=== PATIENT | female | born 1985 | race Caucasian/White ===

== ENCOUNTER 2018-03-09 17:41 | Inpatient (IN) ==
[2018-03-09] MEDS ORDERED: [UNRECOGNIZED DRUG - OTHER] SQ SCH (18:15)
--- NOTE | 2018-03-09 18:20 | P.HPOB ---
History of Present Illness Primary Care Physician: No Primary Care Physician Chief Complaint: hypertension History of Present Illness: 32 yo here with BP of 155/100. she had 12 # weight gain and doesn't feel well. She is insulin dependent diabetic controlled well. Weeks Gestation:: 37 Para: 0 : 1 Review of Systems All other systems reviewed negative except as stated in HPI PMFSH - Medical / Surgical Hx Neg / Unobtainable Surgical History: No Previous Surgery - Medical History Medical History: Medical History (Last Updated 12/27/17 @ 13:13 by Dominic Haley MD) Diabetes mellitus affecting in second trimester - Tobacco History Smoking Status: Never smoker - Alcohol History How Often Do You Have a Drink Containing Alcohol: Never - Substance Use History Substance History: No History of Abuse - Travel History History of Recent Travel: No Medications and Allergies Active Medications: Active Medications Non-Formulary Medication (Insulin Aspart U-100 [Novolog U-100 Insulin Aspart]) 1 sliding scale dose SQ UD SHERI Non-Formulary Medication (Insulin Detemir U-100 [Levemir U-100 Insulin]) 75 unit SQ DAILY SHERI Non-Formulary Medication (Pnv Cmb#95-Ferrous Fumarate-Fa []) 1 tab PO DAILY SHERI Sodium Chloride (Ns Flush) 2 ml IV.FLUSH BID SHERI Sodium Chloride (Ns Flush) 2 ml IV.FLUSH PRN PRN PRN Reason: FLUSH AFTER USING IV ACCESS Allergies Allergy/AdvReac Type Severity Reaction Status Date / Time No Known Allergies Allergy Verified 12/27/17 12:53 Home Medications Medication Instructions Recorded Confirmed Type PNV cmb#95-ferrous fumarate-FA 1 tab PO DAILY 12/27/17 12/27/17 History [] insulin aspart U-100 [Novolog 1 sliding scale dose SUB-Q UD 12/27/17 12/27/17 History U-100 Insulin aspart] insulin detemir U-100 [Levemir 75 - 80 unit SUB-Q DAILY 12/27/17 12/27/17 History U-100 Insulin] Exam Vital signs: Intake & Output 03/08/18 03/09/18 03/09/18 18:59 06:59 18:59 Weight 142.428 kg Other: Weight On Admission 142.428 kg - Constitutional no acute distress - Routine HEENT Exam Head: Present: normocephalic ENT: Present: mucous membranes moist - Routine Respiratory Exam Present: CTA bilaterally - Routine Cardiovascular Exam Present: RRR - Routine Abdominal Exam Present: soft, normoactive bowel sounds - Routine Extremities Exam Present: edema, full ROM - Routine Skin Exam Present: intact - Routine Neurological Exam Present: alert, oriented X3 Caprini VTE Risk Assessment Caprini VTE Risk Assessment: No/Low Risk (score <= 1) Caprini Risk Assessment Model: Point Value = 1 Point Value = 2 Point Value = 3 Point Value = 5 Age 41-60 Minor surgery BMI > 25 kg/m2 Swollen legs Varicose veins or History of unexplained or recurrent spontaneous Oral contraceptives or hormone replacement Sepsis (< 1 month) Serious lung disease, including pneumonia (< 1 month) Abnormal pulmonary function Acute myocardial infarction Congestive heart failure (< 1 month) History of inflammatory bowel disease Medical patient at bed rest Age 61-74 Arthroscopic surgery Major open surgery (> 45 min) Laparoscopic surgery (> 45 min) Malignancy Confined to bed (> 72 hours) Immobilizing plaster cast Central venous access Age >= 75 History of VTE Family history of VTE Factor V Leiden Prothrombin [id number] Lupus anticoagulant Anticardiolipin antibodies Elevated serum homocysteine Heparin-induced thrombocytopenia Other congenital or acquired thrombophilia Stroke (< 1 month) Elective arthroplasty Hip, pelvis, or leg fracture Acute spinal cord injury (< 1 month) Prophylaxis Regimen: Total Risk Factor Score Risk Level Prophylaxis Regimen 0-1 Low Early ambulation 2 Moderate Order ONE of the following: *Sequential Compression Device (SCD) *Heparin 5000 units SQ BID 3-4 Higher Order ONE of the following medications: *Heparin 5000 units SQ TID *Enoxaparin/Lovenox 40 mg SQ daily (WT < 150 kg, CrCl > 30 mL/min) *Enoxaparin/Lovenox 30 mg SQ daily (WT < 150 kg, CrCl > 10-29 mL/min) *Enoxaparin/Lovenox 30 mg SQ BID (WT < 150 kg, CrCl > 30 mL/min) AND/OR *Sequential Compression Device (SCD) 5 or more Highest Order ONE of the following medications: *Heparin 5000 units SQ TID (Preferred with Epidurals) *Enoxaparin/Lovenox 40 mg SQ daily (WT < 150 kg, CrCl > 30 mL/min) *Enoxaparin/Lovenox 30 mg SQ daily (WT < 150 kg, CrCl > 10-29 mL/min) *Enoxaparin/Lovenox 30 mg SQ BID (WT < 150 kg, CrCl > 30 mL/min) AND *Sequential Compression Device (SCD) Assessment and Plan - Diagnosis (1) 37 weeks gestation of Code(s): Z3A.37 - 37 weeks gestation of Status: Acute (2) Gestational hypertension affecting first Code(s): O13.9 - Gestational [-induced] hypertension without significant proteinuria, unspecified trimester Status: Acute (3) Diabetes in Code(s): O24.919 - Unspecified diabetes mellitus in , unspecified trimester Status: Acute - Plan admit for OBS 24 hr urine collect labs and serial BP
[2018-03-09] MEDS ORDERED: Labetalol HCl Inj 100 MG/20 ML Vial IV.PUSH PRN ×3 (18:31→18:52)
[2018-03-09 20:05] LABS: Baso % (Auto) 0.1 % (0.0-2.0); Eos % (Auto) 0.1 % (0.0-4.0); Hematocrit 37.2 % (35.0-46.0); Hemoglobin 11.8 gm/dL (11.6-15.3); Lymph # (Auto) 2.3 th/mm3 (1.0-4.8); Lymph % (Auto) 18.4 % (9.0-44.0); Mean Corpuscular HGB Conc 31.7 % (32.0-36.0); Mean Corpuscular Hemoglobin 25.3 pg (27.0-34.0); Mean Corpuscular Volume 79.8 fL (80.0-100.0); Mean Platelet Volume 10.6 fL (7.0-11.0); Mono # (Auto) 0.6 th/mm3 (0.0-0.9); Mono % (Auto) 4.6 % (0.0-8.0); Neut # (Auto) 9.5 th/mm3 (1.8-7.7); Neut % (Auto) 76.8 % (16.0-70.0); Platelet Count 148 th/mm3 (150-450); Red Blood Count 4.65 mil/mm3 (4.00-5.30); Red Cell Distribution Width 15.6 % (11.6-17.2); White Blood Count 12.4 th/mm3 (4.0-11.0)
[2018-03-09 20:22] LABS: Albumin 2.5 g/dL (3.4-5.0); Anion Gap 7 meq/L (5-15); Aspartate Aminotransferase 23 U/L (15-37); Blood Urea Nitrogen 9 mg/dL (7-18); Calcium 8.9 mg/dL (8.5-10.1); Carbon Dioxide 23.2 meq/L (21.0-32.0); Chloride 108 meq/L (98-107); Glomerular Filtration Rate Greater Than 89 mL/min (>89); Glucose,Random 143 mg/dL (74-106); Sodium 138 meq/L (136-145)
[2018-03-09 20:24] LABS: Alanine Aminotransferase 17 U/L (10-53)
[2018-03-09 20:26] LABS: Alkaline Phosphatase 152 U/L (45-117); Total Protein 6.3 g/dL (6.4-8.2)
[2018-03-09 20:27] LABS: Bilirubin,Urine Negative (Negative); Clarity,Urine Hazy (Clear); Color,Urine Yellow (Yellw/Straw); Glucose,Urine (UA) Negative (Negative); Leukocyte Esterase,Urine Large (Negative); Nitrite,Urine Negative (Negative); Specific Gravity,Urine 1.016 (1.002-1.035)
[2018-03-10] MEDS ORDERED: Non-Formulary Drug (Pnv Cmb#95-Ferrous Fumarate-Fa [Prenatal] 1 TAB) PO SCH (09:00)
[2018-03-10] MEDS ORDERED: [UNRECOGNIZED DRUG - OTHER] PO SCH (09:00)
[2018-03-10] MEDS ORDERED: Insulin Detemir Inj 1,000 UNIT/10 ML Vial SQ SCH (09:00)
[2018-03-10] MEDS ORDERED: fentaNYL Citrate Inj 100 MCG/2 ML Ampul IV.PUSH PRN ×2 (22:42)
[2018-03-10] MEDS ORDERED: Naloxone Inj 0.4 MG/ML Vial IV.PUSH PRN (22:42)
[2018-03-10] MEDS ORDERED: Sodium Chlor 0.9% Inj 500 ML IV.SIG PRN (22:42)
[2018-03-10] MEDS ORDERED: Sod Chloride 0.9% Inj 1,000 ML IV.CONT PRN (22:42)
[2018-03-10] MEDS ORDERED: Oxytocin 30 Units/500ml Premix 30 UNITS/500 ML BAG IV.SIG ONE (22:42)
[2018-03-10] MEDS ORDERED: Citric Acid/Sodium Citrate Liq 30 ML UDC PO SCH (22:45)
--- NOTE | 2018-03-10 22:50 | P.OBANTE ---
Subjective Antepartum ROS: Reports: movement normal Objective Vital Signs and I&O: Vital Signs 03/09/18 23:50 03/09/18 23:53 03/10/18 00:08 Temperature 98.4 F Pulse Rate 91 H 88 Respiratory Rate 18 Blood Pressure 151/92 H 138/87 03/10/18 03:43 03/10/18 03:59 03/10/18 04:02 Temperature 97.7 F Pulse Rate 94 H Respiratory Rate 18 Blood Pressure 135/84 03/10/18 07:58 03/10/18 07:59 03/10/18 08:00 Temperature 97.6 F Pulse Rate 87 Respiratory Rate 18 Blood Pressure 156/100 H 03/10/18 11:20 03/10/18 11:21 03/10/18 15:25 Temperature 98.0 F 98.5 F Pulse Rate 90 Respiratory Rate 18 18 Blood Pressure 153/90 H 03/10/18 15:26 03/10/18 19:32 03/10/18 19:35 Temperature 98.6 F Pulse Rate 95 H 99 H Respiratory Rate 18 Blood Pressure 138/74 155/85 H Intake & Output 03/10/18 03/10/18 03/11/18 06:59 18:59 06:59 Intake Total 1000 / 1000 Balance 1000 / 1000 Intake: IV 1000 / 1000 LR 1000 mL Inj 1,000 ML @ 75 1000 / 1000 mls/hr IV.CONT .[id number] [facility] Rx# :[id number] Lab and Micro Results: Laboratory Results - last 24 hr 03/10/18 18:00 Ur 24 Hour Volume 1800 Ur Total Protein 24 Hr 373 H Physical Exam: GENERAL: Well-nourished, well-developed patient. CARDIOVASCULAR: Regular rate and rhythm without murmurs, gallops, or rubs. RESPIRATORY: Breath sounds equal bilaterally. No accessory muscle use. ABDOMEN/GI: Abdomen soft, non-tender. Fundus: [-] GENITOURINARY: External Genitalia: intact and normal in appearance Cervix: [-] Dilatation: 3 Effacement: [-] Station: [-] Presentation: [-] Membranes: [-] Uterine Contractions: none FHT's: Category:1 Baseline: [-] Reactive: [-] Variability: [-] Decels: [-] EXTREMITIES: No cyanosis or edema, non-tender, without signs of DVT. Assessment and Plan - Diagnosis (1) 37 weeks gestation of Code(s): Z3A.37 - 37 weeks gestation of Status: Acute (2) Gestational hypertension affecting first Code(s): O13.9 - Gestational [-induced] hypertension without significant proteinuria, unspecified trimester Status: Acute (3) Diabetes in Code(s): O24.919 - Unspecified diabetes mellitus in , unspecified trimester Status: Acute (4) Proteinuria affecting in third trimester Code(s): O12.13 - Gestational proteinuria, third trimester Status: Acute - Plan admit for induction. Patient had 24 hour urine greater than 300 at 37 weeks and continued elevation of BP 150/100 range. She has swaeeling and weight gain. I will hold magnesium unless symptoms of preeclamsia worsen. she will have AROM and if no contractions in a few hours pitocin
[2018-03-11 00:52] LABS: Hematocrit 35.3 % (35.0-46.0); Hemoglobin 11.6 gm/dL (11.6-15.3); Mean Corpuscular HGB Conc 32.9 % (32.0-36.0); Mean Corpuscular Volume 78.9 fL (80.0-100.0); Mean Platelet Volume 10.6 fL (7.0-11.0); Platelet Count 144 th/mm3 (150-450); Red Blood Count 4.47 mil/mm3 (4.00-5.30); Red Cell Distribution Width 15.6 % (11.6-17.2); White Blood Count 12.5 th/mm3 (4.0-11.0)
[2018-03-11 01:28] LABS: Alanine Aminotransferase 13 U/L (10-53); Albumin 2.4 g/dL (3.4-5.0); Anion Gap 8 meq/L (5-15); Aspartate Aminotransferase 16 U/L (15-37); Blood Urea Nitrogen 9 mg/dL (7-18); Calcium 8.5 mg/dL (8.5-10.1); Carbon Dioxide 23.1 meq/L (21.0-32.0); Chloride 109 meq/L (98-107); Glomerular Filtration Rate Greater Than 89 mL/min (>89); Glucose,Random 135 mg/dL (74-106); Potassium 3.7 meq/L (3.5-5.1); Sodium 140 meq/L (136-145)
[2018-03-11 01:30] LABS: Alkaline Phosphatase 151 U/L (45-117); Total Protein 6.1 g/dL (6.4-8.2)
[2018-03-11] MEDS ORDERED: Oxytocin 30 Units/500ml Premix 30 UNITS/500 ML BAG IV.SIG PRN ×2 (05:00→14:06)
--- NOTE | 2018-03-11 10:14 | P.OBLABOR ---
Subjective Interval history: Patient received 3 dose misoprostol 25 mcg CTX mild cervix changed from 1 to 2 cm. BP stable and 24 hr urine 373 mg Objective Objective: Pelvic Exam: Cervix: [-] Dilatation: 2 Effacement: [-] Station: [-] Presentation: vtx Membranes: [intact Uterine Contractions: [-] FHT's: Category 1 Baseline: [-] Reactive: [-] Variability: [-] Decels: [-] Weeks Gestation: 37 Active Labor Start Date: 03/10/18 Active Labor Start Time: 22:00 Medical Induction of Labor: Yes Medical Induction Start Date: 03/10/18 Medical Induction Start Time: 22:00 Assessment and Plan - Diagnosis (1) 37 weeks gestation of Code(s): Z3A.37 - 37 weeks gestation of Status: Acute (2) Gestational hypertension affecting first Code(s): O13.9 - Gestational [-induced] hypertension without significant proteinuria, unspecified trimester Status: Acute (3) Diabetes in Code(s): O24.919 - Unspecified diabetes mellitus in , unspecified trimester Status: Acute (4) Proteinuria affecting in third trimester Code(s): O12.13 - Gestational proteinuria, third trimester Status: Acute - Plan admit for induction. Patient had 24 hour urine greater than 300 at 37 weeks and continued elevation of BP 150/100 range. She has swaeeling and weight gain. I will hold magnesium unless symptoms of preeclamsia worsen. she will have AROM and if no contractions in a few hours pitocin
--- NOTE | 2018-03-11 14:06 | P.OBLABOR ---
Subjective Interval history: doing well, contractions mild AROM clear Objective Objective: Pelvic Exam: Cervix: [-] Dilatation: [-] Effacement: [-] Station: [-] Presentation: [-] Membranes: [intact or ruptured] Uterine Contractions: [-] FHT's: Category: [-] Baseline: [-] Reactive: [-] Variability: [-] Decels: [-] Artificial Rupture of Membrane: Yes Artificial ROM Date: 03/11/18 Artificial ROM Time: 13:45 Assessment and Plan - Diagnosis (1) 37 weeks gestation of Code(s): Z3A.37 - 37 weeks gestation of Status: Acute (2) Gestational hypertension affecting first Code(s): O13.9 - Gestational [-induced] hypertension without significant proteinuria, unspecified trimester Status: Acute (3) Diabetes in Code(s): O24.919 - Unspecified diabetes mellitus in , unspecified trimester Status: Acute (4) Proteinuria affecting in third trimester Code(s): O12.13 - Gestational proteinuria, third trimester Status: Acute - Plan admit for induction. Patient had 24 hour urine greater than 300 at 37 weeks and continued elevation of BP 150/100 range. She has swaeeling and weight gain. I will hold magnesium unless symptoms of preeclamsia worsen. she will have AROM and if no contractions in a few hours pitocin
[2018-03-12 00:37] LABS: Amphetamine Urine With Conf Neg (Neg); Benzodiazepine Urine With Conf Neg (Neg); Cocaine Urine With Conf Neg (Neg); Opiates Urine With Conf Neg (Neg)
[2018-03-12 00:38] LABS: Cannabinoid Urine With Conf Neg (Neg)
[2018-03-12] MEDS ORDERED: fentaNYL 2MCG-Bupiv 0.125% Epi 150 ML EPIDURAL ONE (02:56)
[2018-03-12] MEDS ORDERED: Bupivacaine PF 0.25% Inj 10 ML Vial ONE (03:43)
[2018-03-12] MEDS ORDERED: fentaNYL Citrate Inj 100 MCG/2 ML Ampul EPIDURAL ONE (04:08)
[2018-03-12] MEDS ORDERED: fentaNYL 2MCG-Bupiv 0.125% Epi 150 ML EPIDURAL PRN (04:08)
[2018-03-12] MEDS ORDERED: Citric Acid/Sodium Citrate Liq 30 ML UDC PO SCH (06:30)
[2018-03-12] MEDS ORDERED: ceFAZolin Inj 3,000 MG in Sodium Chlor 0.9% Inj 100 ML IV.SIG SCH (07:00)
[2018-03-12 07:03] LABS: Baso % (Auto) 0.1 % (0.0-2.0); Hematocrit 40.1 % (35.0-46.0); Hemoglobin 13.3 gm/dL (11.6-15.3); Lymph # (Auto) 1.3 th/mm3 (1.0-4.8); Lymph % (Auto) 5.5 % (9.0-44.0); Mean Corpuscular HGB Conc 33.2 % (32.0-36.0); Mean Corpuscular Hemoglobin 26.6 pg (27.0-34.0); Mean Corpuscular Volume 80.1 fL (80.0-100.0); Mono # (Auto) 0.4 th/mm3 (0.0-0.9); Mono % (Auto) 1.5 % (0.0-8.0); Neut # (Auto) 21.3 th/mm3 (1.8-7.7); Neut % (Auto) 92.9 % (16.0-70.0); Platelet Count 188 th/mm3 (150-450); Red Blood Count 5.01 mil/mm3 (4.00-5.30); Red Cell Distribution Width 15.9 % (11.6-17.2)
[2018-03-12] MEDS ORDERED: ceFAZolin 1 GM Premix Inj 1 GM/50 ML FROZ.PIGGY IV.SIG ONE (07:18)
[2018-03-12 07:30] LABS: Alanine Aminotransferase 15 U/L (10-53); Albumin 2.6 g/dL (3.4-5.0); Anion Gap 16 meq/L (5-15); Aspartate Aminotransferase 17 U/L (15-37); Blood Urea Nitrogen 9 mg/dL (7-18); Calcium 8.6 mg/dL (8.5-10.1); Chloride 105 meq/L (98-107); Glomerular Filtration Rate Greater Than 89 mL/min (>89); Glucose,Random 217 mg/dL (74-106); Potassium 4.4 meq/L (3.5-5.1); Sodium 137 meq/L (136-145)
[2018-03-12 07:32] LABS: Alkaline Phosphatase 185 U/L (45-117); Total Protein 6.9 g/dL (6.4-8.2)
[2018-03-12] MEDS ORDERED: Ibuprofen 600 MG Tablet PO PRN (08:22)
--- NOTE | 2018-03-12 08:28 | P.OBDELI ---
Procedure Note - Pre Op Diagnosis (1) Arrest of dilation, delivered, current hospitalization - Post Op Diagnosis (1) Arrest of dilation, delivered, current hospitalization Performed by: Zak Godwin MD Procedure: Primary Low Transverse Section Indication for Delivery: Other (arrest of dilatation) Informed Consent Obtained: For anesthesia, For procedure Confirmed Correct: Patient, Procedure, Site, Time-out taken Anesthesia: Epidural Urinary Catheter: Inserted using sterile technique, To dependent drainage Sterile Preparation: Duraprep Position: Supine, Supine with wedge to left side - Operative Features Skin Incision: Pfannenstiel Uterine Incision: Low transverse w/knife / blunt ext, Low transverse w/knife / scissors Membranes Ruptured: Artificially, Previously Presentation: Occiput anterior Status of : Viable Placenta Delivered: Intact Medications: Antibiotics Procedure Tolerated: Well Maternal Condition: Stable Baby Condition: Stable Procedure in Detail: Taken to the operating room identified by name band and verbally and given a regional anesthetic. She was prepped and draped in the usual sterile manner for a section. A time out was taken. A Pfannenstiel incision was made and carried down to the fascia the fascia was nicked bilaterally and the fascia was taken off the rectus muscle by blunt and sharp dissection. The rectus muscles were spread bluntly and the peritoneum was entered under direct vision. The incision was extended with care to avoid the urinary bladder. A bladder blade was placed and a bladder flap was created in the usual fashion. The lower uterine segment was then incised sharply in a transverse manner and taken down in the midline until the uterine cavity was entered. The incision was extended with the surgeon's fingers. The vertex was grasped and with fundal pressure the vertex was delivered without difficulty hypopharynx and nasopharynx were suctioned and the remainder of the delivered without difficulty. The cord clamping was delayed 45 seconds and then the cord was clamped cut and the was handed over to the resuscitation team cord blood was obtained the placenta was removed manually and the uterus was curettaged twice with a wet lap. The uterus was delivered from the abdomen. The uterine incision was repaired with #1 chromic in a running fashion in 2 layers the second layer imbricating the first. The cul-de-sac and gutters were cleaned of blood and debris the uterus was delivered back into the abdomen. The rectus muscles were reapproximated with 0 Vicryl in a running the fascia was repaired with 0 Vicryl from lateral to midline bilaterally. The subcutaneous layer was repaired with a 3-0 Vicryl. The skin was repaired with a 4-0 Monocryl in a subcuticular manner. Patient tolerated the procedure well and went to recovery room in good condition. - Infant Infant: Female, Single
[2018-03-12] MEDS ORDERED: Oxytocin 30 Units/500ml Premix 30 UNITS/500 ML BAG ONE (08:37)
[2018-03-12] MEDS ORDERED: Oxytocin 30 Units/500ml Premix 30 UNITS/500 ML BAG IV.SIG ONE (09:00)
[2018-03-12] MEDS ORDERED: Naloxone Inj 0.4 MG/ML Vial IV.PUSH PRN (09:39)
[2018-03-12] MEDS ORDERED: Oxytocin 30 Units/500ml Premix 30 UNITS/500 ML BAG IV.SIG PRN (13:23)
[2018-03-13 05:51] LABS: Baso % (Auto) 0.3 % (0.0-2.0); Eos % (Auto) 0.1 % (0.0-4.0); Hematocrit 30.3 % (35.0-46.0); Hemoglobin 9.8 gm/dL (11.6-15.3); Lymph # (Auto) 3.3 th/mm3 (1.0-4.8); Lymph % (Auto) 24.5 % (9.0-44.0); Mean Corpuscular HGB Conc 32.4 % (32.0-36.0); Mean Corpuscular Hemoglobin 26.2 pg (27.0-34.0); Mean Corpuscular Volume 80.8 fL (80.0-100.0); Mean Platelet Volume 10.2 fL (7.0-11.0); Mono # (Auto) 0.8 th/mm3 (0.0-0.9); Neut # (Auto) 9.4 th/mm3 (1.8-7.7); Neut % (Auto) 69.1 % (16.0-70.0); Platelet Count 151 th/mm3 (150-450); Red Blood Count 3.75 mil/mm3 (4.00-5.30); Red Cell Distribution Width 16.2 % (11.6-17.2); White Blood Count 13.5 th/mm3 (4.0-11.0)
--- NOTE | 2018-03-13 09:12 | P.PNOB ---
Subjective Post day: 1 Interval history: section for arrest of dilation Objective Vital Signs/I&O: Vital Signs 03/12/18 09:30 03/12/18 11:51 03/12/18 12:04 Temperature 97.7 F 97.8 F Pulse Rate 138 H 81 82 Respiratory Rate 18 18 18 Blood Pressure 121/66 130/61 113/58 L 03/12/18 12:16 03/12/18 14:00 03/12/18 19:45 Temperature 97.5 F L 98.6 F Pulse Rate 78 105 H 108 H Respiratory Rate 18 18 18 Blood Pressure 114/56 L 145/77 H 162/83 H 03/12/18 21:50 03/13/18 00:23 03/13/18 04:57 Temperature 98.0 F 97.7 F Pulse Rate 109 H 101 H 98 H Respiratory Rate 18 18 Blood Pressure 144/86 H 157/82 H 127/75 Result Diagrams: 03/13/18 05:28 03/12/18 06:55 Objective Remarks: GENERAL: Well-nourished, well-developed patient. ABDOMEN/GI: Abdomen soft, non-tender. Fundus: Firm, non-tender at umbilicus. GENITOURINARY: Light to moderate bleeding. EXTREMITIES: No cyanosis or edema, non-tender, without signs of DVT. Medications and IVs: Active Medications Calcium Gluconate (Calcium Gluconate Inj) 1 gm IV.PUSH PRN PRN PRN Reason: Magnesium toxicity Citric Acid/Sodium Citrate (Sodium Citrate/Citric Acid Liq) 30 ml PO PRINCIPAL ARCHAEOLOGIST [facility] Stop: 03/14/18 22:44 Citric Acid/Sodium Citrate (Sodium Citrate/Citric Acid Liq) 30 ml PO PRINCIPAL ARCHAEOLOGIST SHERI Stop: 03/16/18 06:29 Diphenhydramine HCl (Benadryl Inj) 25 mg IV.PUSH Q6H PRN PRN Reason: MILD TO MODERATE ITCHING Stop: 03/13/18 09:38 Last Admin: 03/12/18 17:04 Dose: 25 mg Diphenhydramine HCl (Benadryl) 50 mg PO Q6H PRN PRN Reason: MILD TO MODERATE ITCHING Stop: 03/13/18 09:38 Diphtheria/Pertussis/Tetanus Vacc (Boostrix Vaccine Inj) 0.5 ml IM .ONCE ONE Stop: 03/13/18 16:01 Fentanyl Citrate (Fentanyl Inj) 50 mcg IV.PUSH Q1H PRN PRN Reason: Pain Scale 3 - 5 Fentanyl Citrate (Fentanyl Inj) 100 mcg IV.PUSH Q1H PRN PRN Reason: PAIN SCALE 6 TO 10 Lactated Ringer's (Lr 1000 Ml Inj) 1,000 mls @ 3,000 mls/hr IV.SIG UNSCH PRN PRN Reason: compromise or epidural Sodium Chloride (Ns Inj) 500 mls @ 1,000 mls/hr IV.SIG UNSCH PRN PRN Reason: SEE LABEL COMMENTS Sodium Chloride (Ns Inj) 1,000 mls @ 100 mls/hr IV.CONT .Q10H PRN PRN Reason: SEE LABEL COMMENTS Oxytocin (Pitocin 30 Units/Ns 500 Ml Premix) 30 units in 500 mls @ 2 mls/hr IV.SIG TITRATE PRN; Protocol PRN Reason: For induction of labor Last Admin: 03/11/18 14:32 Dose: 2 milliunit/min, 2 mls/hr Fentanyl/Bupivacaine/Sodium Chlor (Fentanyl 2 Mcg-Bupiv 0.125% Epi) 150 mls @ 18 mls/hr EPIDURAL PRN PRN PRN Reason: for Labor Pain Last Admin: 03/12/18 04:58 Dose: 18 mls/hr Cefazolin Sodium 3,000 mg/ (Sodium Chloride) 130 mls @ 200 mls/hr IV.SIG PRINCIPAL ARCHAEOLOGIST [facility] Stop: 03/16/18 06:59 Lactated Ringer's (Lr 1000 Ml Inj) 1,000 mls @ 100 mls/hr IV.CONT .Q10H [facility] Stop: 03/13/18 09:22 Last Admin: 03/13/18 07:56 Dose: Not Given Oxytocin (Pitocin 30 Units/Ns 500 Ml Premix) 30 units in 500 mls @ 100 mls/hr IV.SIG PRN PRN PRN Reason: Heavy bleeding Stop: 03/13/18 13:22 Ibuprofen (Motrin) 600 mg PO Q6HR PRN PRN Reason: cramping Ketorolac Tromethamine (Toradol Inj) 30 mg IM Q6H PRN PRN Reason: SEE LABEL COMMENTS Stop: 03/17/18 08:21 Last Admin: 03/13/18 03:08 Dose: 30 mg Labetalol HCl (Trandate Inj) 20 mg IV.PUSH NOW PRN PRN Reason: SEE LABEL COMMENTS Labetalol HCl (Trandate Inj) 40 mg IV.PUSH NOW PRN PRN Reason: SEE LABEL COMMENTS Labetalol HCl (Trandate Inj) 80 mg IV.PUSH NOW PRN PRN Reason: SEE LABEL COMMENTS Lidocaine HCl (Xylocaine 1% Inj) 0.1 ml I-DERMAL PRN PRN PRN Reason: For IV start Stop: 03/13/18 22:41 Measles/Mumps/Rubella Vaccine Live (M-M-R Ii Vaccine Inj) 0.5 ml SQ .ONCE ONE Stop: 03/13/18 16:01 Mineral Oil (Muri-Lube Oil) 10 ml TOPICAL PRN PRN PRN Reason: PRN perineal massage Naloxone HCl (Narcan Inj) 0.1 mg IV.PUSH Q2M PRN PRN Reason: for opiate reversal Naloxone HCl (Narcan Inj) 0.4 mg IV.PUSH UNSCH PRN PRN Reason: SEE LABEL COMMENTS Stop: 03/13/18 09:38 Ondansetron HCl (Zofran Inj) 4 mg IV.PUSH Q6H PRN PRN Reason: NAUSEA OR VOMITING Last Admin: 03/12/18 13:28 Dose: 4 mg Oxycodone/Acetaminophen (Percocet 5/325 Mg) 1 tab PO Q4H PRN PRN Reason: PAIN SCALE 3 TO 5 Oxycodone/Acetaminophen (Percocet 5/325 Mg) 2 tab PO Q4H PRN PRN Reason: PAIN SCALE 6 TO 10 Pt: Cmb#95 0 each PO DAILY [facility] Promethazine HCl (Phenergan Inj) 25 mg IM Q4H PRN PRN Reason: NAUSEA OR VOMITING Simethicone (Mylicon Chew) 80 mg PO QID PRN PRN Reason: FLATULENCE Sodium Chloride (Ns Flush) 2 ml IV.FLUSH BID SHERI Last Admin: 03/12/18 22:42 Dose: Not Given Sodium Chloride (Ns Flush) 2 ml IV.FLUSH PRN PRN PRN Reason: FLUSH AFTER USING IV ACCESS Assessment and Plan - Diagnosis (1) 37 weeks gestation of Code(s): Z3A.37 - 37 weeks gestation of Status: Acute (2) Gestational hypertension affecting first Code(s): O13.9 - Gestational [-induced] hypertension without significant proteinuria, unspecified trimester Status: Acute (3) Diabetes in Code(s): O24.919 - Unspecified diabetes mellitus in , unspecified trimester Status: Acute (4) Proteinuria affecting in third trimester Code(s): O12.13 - Gestational proteinuria, third trimester Status: Acute - Plan admit for induction. Patient had 24 hour urine greater than 300 at 37 weeks and continued elevation of BP 150/100 range. She has swaeeling and weight gain. I will hold magnesium unless symptoms of preeclamsia worsen. she will have AROM and if no contractions in a few hours pitocin
[2018-03-13] MEDS ORDERED: Measles/Mumps/Rubella Vaccine Inj 0.5 ML Vial SQ ONE (16:00)
[2018-03-13] MEDS ORDERED: Diphtheria/Tetanus/Pertussis Vaccine Inj 0.5 ML Syringe IM ONE (16:00)
[2018-03-13] MEDS: Docusate Sodium 100 MG Capsule PO SCH (23:01)
[2018-03-13] MEDS: Simethicone 80 MG Chew Tablet PO PRN (23:57)
--- NOTE | 2018-03-14 08:18 | P.PNOB ---
Subjective Post day: 2 Interval history: doing well 2 days post op CS . She is doing well Objective Vital Signs/I&O: Vital Signs 03/13/18 20:00 Temperature 98.0 F Pulse Rate 101 H Respiratory Rate 20 Blood Pressure 143/96 H Result Diagrams: 03/13/18 05:28 03/12/18 06:55 Objective Remarks: GENERAL: Well-nourished, well-developed patient. CARDIOVASCULAR: Regular rate and rhythm without murmurs, gallops, or rubs. RESPIRATORY: Breath sounds equal bilaterally. No accessory muscle use. ABDOMEN/GI: Abdomen soft, non-tender. Fundus: Firm, non-tender at umbilicus. GENITOURINARY: Light to moderate bleeding. EXTREMITIES: No cyanosis or edema, non-tender, without signs of DVT. Medications and IVs: Active Medications Calcium Gluconate (Calcium Gluconate Inj) 1 gm IV.PUSH PRN PRN PRN Reason: Magnesium toxicity Citric Acid/Sodium Citrate (Sodium Citrate/Citric Acid Liq) 30 ml PO [employer]G [employer] MANAGER [facility] Stop: 03/16/18 06:29 Docusate Sodium (Colace) 100 mg PO DAILY [facility] Last Admin: 03/13/18 23:01 Dose: 100 mg Fentanyl Citrate (Fentanyl Inj) 50 mcg IV.PUSH Q1H PRN PRN Reason: Pain Scale 3 - 5 Fentanyl Citrate (Fentanyl Inj) 100 mcg IV.PUSH Q1H PRN PRN Reason: PAIN SCALE 6 TO 10 Lactated Ringer's (Lr 1000 Ml Inj) 1,000 mls @ 3,000 mls/hr IV.SIG UNSCH PRN PRN Reason: compromise or epidural Sodium Chloride (Ns Inj) 500 mls @ 1,000 mls/hr IV.SIG UNSCH PRN PRN Reason: SEE LABEL COMMENTS Sodium Chloride (Ns Inj) 1,000 mls @ 100 mls/hr IV.CONT .Q10H PRN PRN Reason: SEE LABEL COMMENTS Oxytocin (Pitocin 30 Units/Ns 500 Ml Premix) 30 units in 500 mls @ 2 mls/hr IV.SIG TITRATE PRN; Protocol PRN Reason: For induction of labor Last Admin: 03/11/18 14:32 Dose: 2 milliunit/min, 2 mls/hr Fentanyl/Bupivacaine/Sodium Chlor (Fentanyl 2 Mcg-Bupiv 0.125% Epi) 150 mls @ 18 mls/hr EPIDURAL PRN PRN PRN Reason: for Labor Pain Last Admin: 03/12/18 04:58 Dose: 18 mls/hr Cefazolin Sodium 3,000 mg/ (Sodium Chloride) 130 mls @ 200 mls/hr IV.SIG DOG [employer]ACES MANAGER [facility] Stop: 03/16/18 06:59 Ibuprofen (Motrin) 600 mg PO Q6HR PRN PRN Reason: cramping Last Admin: 03/13/18 23:57 Dose: 600 mg Labetalol HCl (Trandate Inj) 20 mg IV.PUSH NOW PRN PRN Reason: SEE LABEL COMMENTS Labetalol HCl (Trandate Inj) 40 mg IV.PUSH NOW PRN PRN Reason: SEE LABEL COMMENTS Labetalol HCl (Trandate Inj) 80 mg IV.PUSH NOW PRN PRN Reason: SEE LABEL COMMENTS Mineral Oil (Muri-Lube Oil) 10 ml TOPICAL PRN PRN PRN Reason: PRN perineal massage Naloxone HCl (Narcan Inj) 0.1 mg IV.PUSH Q2M PRN PRN Reason: for opiate reversal Ondansetron HCl (Zofran Inj) 4 mg IV.PUSH Q6H PRN PRN Reason: NAUSEA OR VOMITING Last Admin: 03/12/18 13:28 Dose: 4 mg Oxycodone/Acetaminophen (Percocet 5/325 Mg) 1 tab PO Q4H PRN PRN Reason: PAIN SCALE 3 TO 5 Oxycodone/Acetaminophen (Percocet 5/325 Mg) 2 tab PO Q4H PRN PRN Reason: PAIN SCALE 6 TO 10 Pt: Cmb#95 0 each PO DAILY [facility] Promethazine HCl (Phenergan Inj) 25 mg IM Q4H PRN PRN Reason: NAUSEA OR VOMITING Simethicone (Mylicon Chew) 80 mg PO QID PRN PRN Reason: FLATULENCE Last Admin: 03/13/18 23:57 Dose: 80 mg Sodium Chloride (Ns Flush) 2 ml IV.FLUSH BID SHERI Last Admin: 03/13/18 22:03 Dose: Not Given Sodium Chloride (Ns Flush) 2 ml IV.FLUSH PRN PRN PRN Reason: FLUSH AFTER USING IV ACCESS Assessment and Plan - Diagnosis (1) 37 weeks gestation of Code(s): Z3A.37 - 37 weeks gestation of Status: Acute (2) Gestational hypertension affecting first Code(s): O13.9 - Gestational [-induced] hypertension without significant proteinuria, unspecified trimester Status: Acute (3) Diabetes in Code(s): O24.919 - Unspecified diabetes mellitus in , unspecified trimester Status: Acute (4) Proteinuria affecting in third trimester Code(s): O12.13 - Gestational proteinuria, third trimester Status: Acute - Plan admit for induction. Patient had 24 hour urine greater than 300 at 37 weeks and continued elevation of BP 150/100 range. She has swaeeling and weight gain. I will hold magnesium unless symptoms of preeclamsia worsen. she will have AROM and if no contractions in a few hours pitocin
[2018-03-14 08:45] VITALS: BP 158/81; PULSE 95
[2018-03-14 08:46] VITALS: RESP 18; TEMP 97.8
[2018-03-14] MEDS: Docusate Sodium 100 MG Capsule PO SCH (09:04)
[2018-03-14] MEDS: Simethicone 80 MG Chew Tablet PO PRN (09:04)
--- NOTE | 2018-03-14 10:54 | P.DS ---
Date of admission: 03/10/18 23:25 Primary care physician: Mirna Primary Care Physician Brief History from admission: 32 yo here with BP of 155/100. she had 12 # weight gain and doesn't feel well. She is insulin dependent diabetic controlled well. DS: Diagnosis - Discharge Diagnosis (1) 37 weeks gestation of Status: Acute (2) Gestational hypertension affecting first Status: Acute (3) Diabetes in Status: Acute (4) Proteinuria affecting in third trimester Status: Acute (5) delivery delivered Status: Acute DS: Medications - Discharge Medications Prescriptions: oxycodone-acetaminophen 2 tab PO Q4H PRN 3 Days #24 tab PRN Reason: Pain Scale 6 To 10 DS: Summary Hospital Course: patient came for HTN and proteinuria. She has type DM on insulin. she was delivered by CS after arrest of dilatation - Time Spent with Patient Total time spent providing and/or coordinating discharge services: Less than 30 minutes Exam Vital signs: Vital Signs 03/13/18 20:00 03/14/18 08:00 Temperature 98.0 F 97.8 F Pulse Rate 101 H 95 H Respiratory Rate 20 18 Blood Pressure 143/96 H 158/81 H - Constitutional no acute distress - Routine Abdominal Exam Present: soft, normoactive bowel sounds Results Procedures completed during hospitalization: section Discharge Plan - Discharge Disposition Patient Disposition: 01 Discharge Home - Discharge Condition Condition: Good - Discharge Order Discharge Orders: Discharge Order (Routine); Ordered 03/14/18 Ordered By: Zak Godwin - Physicians Team Primary Care Provider: Primary Care Mirna Giles Attending Provider: Zak Godwin - Rxs /Orders / Referrals /Forms Prescriptions: New oxycodone-acetaminophen 5-325 mg Tablet 2 tab PO Q4H PRN (Reason: Pain Scale 6 To 10) 3 Days Qty: 24 RF: 0 Continue insulin aspart U-100 [Novolog U-100 Insulin aspart] 100 unit/mL Solution 1 sliding scale dose SUB-Q UD insulin detemir U-100 [Levemir U-100 Insulin] 100 unit/mL Solution 80 unit SUB-Q BID PNV cmb#95-ferrous fumarate-FA [] 28 mg iron- 800 mcg Tablet 1 tab PO DAILY Referrals: Zak Godwin MD [Physician] - See Instructions (2 weeks) Primary Care Mirna Giles [Primary Care Provider] - See Instructions - Post Discharge Care Plan Care Plan Goals: Discharge Care Plan Goals After Section Congratulations on your new baby! We want your recovery to be ivey and trouble free. You had a section, or . During the , your baby was delivered through an incision in your abdomen and uterus. Full recovery after a can take time. Its important to take care of yourself for your own sake and because your new baby needs you. Here are some guidelines to follow at home. Incision care: Here's how to take care of your incision: * Shower as needed. Pat your incision dry. * Watch your incision for signs of infection, like more redness or drainage. * Hold a pillow against the incision when you laugh or cough and when you get up from a lying or sitting position. * Remember, it can take as long as 6 weeks for your incision to heal. Diet and Activity: Here are some suggestions: * Dont try to take care of anyone other than your baby and yourself. * Remember, the more active you are, the more likely you are to have an increase in your bleeding. * Get lots of rest. Take naps when the is napping. * Increase your activities bit by bit. * Plan your activities so that you dont have to go up or down stairs more than needed. * Do postsurgical deep breathing and coughing exercises. Follow your physician' s instructions. * Dont lift anything heavier than your baby until your physician tells you it s OK. * Dont drive when you are on pain medications. * Dont have sexual intercourse until after youve had a checkup with your physician and you have decided on a control method. * Allow others to do things for you. Don't hesitate to ask for help. If you are : * Ask before you take any medicine. * If you leak milk, it will help to nurse right before the activity. * Talk to your healthcare provider about alcohol, if you choose to drink. * When youre sick, check with your physician if the medications would impact the breast feeding * Ask your physician before taking any prescription or over-the- counter medicines, herbs, or supplements. * Ask your physician what to use for prevention while you are nursing. Balancing the Blues: Recognize your need to talk, to feel protected, to have private time. Allow yourself to cry, to sit, to think. Ask for help when you need it, and accept help when its offered. Knowing your needs is not a weakness. Share your thoughts with your partner. Or pickle water pump operator the phone and call a friend, your mother , a sister, or an aunt. Rest, eat right, and get some light exercise. The mind feels best when the body feels good. When to Call your Physician: * Fever of 100.5F or higher. * Redness, pain, or drainage at your incision site * Bleeding that requires a new sanitary pad every hour * Severe pain in the abdomen * Pain or urgency with urination * Foul odor from vaginal discharge * Trouble urinating or emptying your bladder * No bowel movement within 1 week after the of your baby * Swollen, red, painful area in the calf/leg * Appearance of rash or hives * Sore, red, painful area on the breasts that may come with flu-like symptoms * Feelings of anxiety, panic, and/or depression Signs of Depression include: You dont want to be with the baby. Your symptoms are not getting better, and youre getting more upset. You have no interest in eating or are not able to sleep. You think you may harm yourself or the baby. The Depression After Delivery hotline (841-049-3339) may also be helpful. Follow-Up: * Keep your appointments as scheduled. * If your symptoms worsen call your OB Physician, or go to an Urgent Care Center or Emergency Room. * Smoking is Dangerous to your health. Avoid second hand smoke. * Call the 24-hour crisis hotline for domestic abuse at Call 911: Call 911 right away if you have: * Sudden onset of chest pain that is not relieved by medications. * Shortness of breath * Severe Depression /Thoughts of harm to self and others
== END 2018-03-14 12:40 | disposition home or self-care (01) ==
LOC: H2E → H1EA 03-12 09:28
PROVIDERS: ADMIT Obstetrics & Gynecology; ATTEND Obstetrics & Gynecology